=== PATIENT | female | born 1965 | race Caucasian/White ===

== ENCOUNTER 2017-08-02 14:39 | Emergency (ER) | payer MEDICARE, OTHER ==
[~2017-08-02] VITALS: Ht 167.6 cm; Wt 59.0 kg
[~2017-08-02 14:39] MED LIST: AUGMENTIN875 M1 PO; BENTYL20 MG PO; BLOOD PRESSURE; COLACE PO; DICYCLOMINE HCL20 MG PO; DIFLUCAN PO; FLAGYL PO; LEVAQUIN PO; NO MEDICATIONS; NORVASC PO; NORVASC10 MG PO; OTC; PATIENT'S PHARMACY; PERCOCET 7.5/321 TAB PO; PRILOSEC PO; PROBIOTIC1 EAC1 PO; PROTONIX PO; ZANTAC150 M1 PO; ZITHROMAX PO; ZOFRAN PO
== END 2017-08-02 16:18 | disposition left against medical advice (07) ==
LOC: CED 14:39
DX: Z53.21 Procedure and treatment not carried out due to patient leaving prior to being seen by health care provider (principal)